=== PATIENT | female | born 1990 | race African-American/Black ===

== ENCOUNTER 2017-02-18 15:14 | Emergency (ER) | payer SELFPAY ==
[2017-02-18 16:03] LABS: URINE SOURCE CLEAN CATCH
[2017-02-18 16:09] LABS: URINE APPEARANCE TURBID; URINE BILIRUBIN NEG (NEG); URINE BLOOD 2+ (NEG); URINE COLOR DK YELLOW; URINE GLUCOSE NEG (NEG); URINE KETONE TRACE (NEG); URINE LEUKOCYTE ESTERASE 2+ (NEG); URINE NITRATE NEG (NEG); URINE PROTEIN TRACE (NEG)
[2017-02-18 16:11] LABS: CULTURE INDICATED? YES; URINE BACTERIA AUWI 1+ (NEGATIVE); URINE SQUAMOUS EPITHELIAL CELL MANY /[HPF]; UWBCS1 AUWI 25-50 (0-5)
[2017-02-18 16:26] LABS: URINE CRYSTALS CALCIUM OXALATE /[HPF]
== END 2017-02-18 16:40 | disposition home or self-care (01) ==
LOC: CED 15:14 → CFTX 15:14
PROVIDERS: Nurse Practitioner
DX: H66.92 Otitis media, unspecified, left ear (principal); J02.9 Acute pharyngitis, unspecified; N30.00 Acute cystitis without hematuria; F17.210 Nicotine dependence, cigarettes, uncomplicated
CPT/HCPCS: 81003; 84703; 87086; 87088; 99283

== ENCOUNTER 2017-04-16 18:26 | Emergency (ER) | payer SELFPAY ==
[~2017-04-16] VITALS: Ht 175.3 cm; Wt 90.7 kg
[2017-04-16 20:23] LABS: URINE SOURCE CLEAN CATCH
[2017-04-16 20:29] LABS: URINE APPEARANCE CLOUDY; URINE BILIRUBIN NEG (NEG); URINE BLOOD NEG (NEG); URINE COLOR YELLOW; URINE GLUCOSE NEG (NEG); URINE KETONE NEG (NEG); URINE LEUKOCYTE ESTERASE 1+ (NEG); URINE NITRATE NEG (NEG); URINE PH 6.5 (5-8); URINE PROTEIN NEG (NEG); URINE SPECIFIC GRAVITY 1.026 (1.003-1.035)
[2017-04-16 20:31] LABS: URINE BACTERIA AUWI NEG (NEGATIVE); URINE SQUAMOUS EPITHELIAL CELL FEW /[HPF]
[2017-04-16 20:37] LABS: CULTURE INDICATED? NO
== END 2017-04-16 20:50 | disposition home or self-care (01) ==
LOC: CED 18:26 → CFTX 18:26
PROVIDERS: Physician Assistant
DX: Z20.2 Contact with and (suspected) exposure to infections with a predominantly sexual mode of transmission (principal); F17.210 Nicotine dependence, cigarettes, uncomplicated
CPT/HCPCS: 81003; 84703; 96372; 99283; J0696